=== PATIENT | male | born 1990 | race African-American/Black ===

== ENCOUNTER 2021-08-26 19:40 | Emergency (ER) | payer OTHER ==
[~2021-08-26] VITALS: Ht 180.3 cm; Wt 77.3 kg
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
[2021-08-26] MEDS ORDERED: KETOROLAC 30 MG/ML VIAL. ONE (20:23)
[2021-08-26] MEDS: KETOROLAC 60 MG/2 ML VIAL. IM ONE (20:34)
[2021-08-26] MEDS ORDERED: CYCL10TA2 PO (21:24)
[2021-08-26 21:30] VITALS: BP 123/75
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
== END 2021-08-26 21:32 | disposition home or self-care (01) ==
LOC: ER 19:40
DX: M54.2 Cervicalgia (principal); V98.8XXA Other specified transport accidents, initial encounter; Y93.89 Activity, other specified; Y92.89 Other specified places as the place of occurrence of the external cause; Y99.8 Other external cause status
CPT/HCPCS: 72040; 96372; 99283; J1885